=== PATIENT | male | born 1955 | race Caucasian/White ===

== ENCOUNTER 2017-04-22 13:08 | Inpatient (IN) ==
[2017-04-22 13:46] LABS: MANUAL DIFF NEEDED? NO
--- NOTE | 2017-04-22 13:47 | EKG Report ---
Test Performed on : 04/22/2017 1:40:04 PM Test Reason : Falls Blood Pressure : / mmHG Vent. Rate : 115 BPM Atrial Rate : 115 BPM P-R Int : 166 ms QRS Dur : 090 ms QT Int : 338 ms P-R-T Axes : 028 -18 015 degrees QTc Int : 467 ms Sinus tachycardia. Otherwise normal ECG When compared with ECG of 26-MAY-2008 19:35, No significant change was found Unconfirmed Result
[2017-04-22 13:50] LABS: BASO% 0.4 % (0.0-0.8); EOS# 0.11 X1000 (0.0-0.7); EOS% 1.6 % (0.0-10.0); HEMATOCRIT 34.6 % (42.0-52.0); HEMOGLOBIN 11.4 g/dL (14.0-18.0); IMM GRAN# 0.03 X1000 (0.0-0.04); IMM GRAN% 0.4 % (0.0-0.5); LYMPH# 1.65 X1000 (1.2-3.4); LYMPH% 24.1 % (20.5-51.1); MCHC 32.9 g/dL (33-37); MCV 97.2 FL (81-99); MONO# 0.61 X1000 (0.11-0.59); MONO% 8.9 % (1.7-9.3); MPV 10.9 FL (7.4-10.4); NEUT% 64.6 % (42.2-75.2); PLT 140 X1000 (130-400); RBC 3.56 XMIL (4.7-6.1)
--- NOTE | 2017-04-22 14:18 | PROVIDER DOCUMENTATION ---
This chart was entered by Lety Toro Scribe, acting as scribe for Favio Martinez CRNP. HPI-Neurological Disorder - General Chief Complaint: Fall Stated Complaint: FALL Time Seen by Provider: 04/22/17 13:13 Source: patient, family () Allergies/Adverse Reactions: Patient Allergies Allergy/AdvReac Type Severity Reaction Status Date / Time Penicillins Allergy Unknown Verified 04/22/17 13:18 Home Medications: Home Medication List Medication Instructions Recorded Confirmed Last Taken Type Colesevelam HCl [Welchol] 1 tab PO DAILY 04/22/17 04/22/17 04/22/17 History Cyclobenzaprine [Flexeril] 1 tab PO QHS 04/22/17 04/22/17 04/21/17 History Lisinopril 1 tab PO BID 04/22/17 04/22/17 04/22/17 History Trazodone HCl 1 tab PO QHS 04/22/17 04/22/17 04/21/17 History - History of Present Illness-Neuro Nature of Presenting Problem: Pt is 61 y/o M presents to the ED with frequent falls. Pt's states Pt took a Flexeril on Thursday and shortly after started leaning to the L and falling. Pt states R should pain. Pt's states Pt started having shaking in L arm on Thursday. Headache Location: denies: frontal, temporal, occipital, parietal, global Severity: reports: mild Onset/Duration: reports: 2 days ago Timing: reports: still present Context: reports: head injury, falling, other (hallucinations). denies: found unresponsive by [facility] staff, found unresponsive by bystander, found unresponsive by family, low blood sugar, recent/heavy alcohol intake, drug abuse , overdose, recent infection, fever, impaired speech, paresthesia, facial droop , seizure activity Character of Altered Mental Status: reports: N/A Any recent trauma/injury?: reports: minor Character of Deficits: reports: falling New weakness or altered sensation location:: reports: none Cognitive Baseline: alert but confused Gait Baseline: walks without assistance Associated Symptoms: reports: trouble walking, weakness, other (hallucinations) . denies: short of breath, headache, decreased ability to walk or stand, fainting, dizziness, confusion, chest pain, neck/back pain, fatigue, fever/ chills, insomnia, loss of consciousness, muscle spasms, nausea, numbness in legs /feet, paresthesia, diaphoretic, ringing in ears, seizures, sleepy, slurred speech, tingling in legs/feet, vomiting, vision changes Similar Symptoms Previously?: Yes Recently seen or treated by another doctor?: No Review of Systems - Adult - REVIEW OF SYSTEMS - ADULT Constitutional: denies: chills, fever Eyes: denies: blurred vision, double vision Ears, Nose, Mouth & Throat: denies: ear pain, nose pain, throat pain Cardiovascular: denies: chest pain, heart murmur, irregular heart rate Respiratory: denies: cough, shortness of breath, wheezing Gastrointestinal: denies: abdominal pain, diarrhea, nausea, vomiting Genitourinary: denies: dysuria, hematuria, urgency Musculoskeletal: reports: muscle weakness, other (R shoulder pain). denies: bone pain, neck pain Integumentary: reports: other (abrasion to bilateral knee and arms laceration to forehead). denies: hives, itching Neurological: reports: tremors (LUE). denies: dizziness/vertigo, headache/ migraines, numbness, slurred speech, syncope Psychiatric: reports: other (hallucinations). denies: anxiety, depression Endocrine: reports: no symptoms reported Hematologic/Lymphatic: reports: no symptoms reported Allergic/Immunologic: reports: no symptoms reported All Other Systems: Reviewed and Negative Past History - Adult - PAST MEDICAL HISTORY-ADULT Review of Records: reports: Nursing Assessment Review, Medications Reviewed, Social history reviewed & non-contributory. Major Childhood Illnesses: reports: denies history Cardiovascular: reports: HTN, hyperlipidemia Respiratory: reports: denies history Gastrointestinal: reports: denies history Obstetrical/Gynecological: reports: denies history Genitourinary: reports: denies history Musculoskeletal: reports: denies history Neurological: reports: denies history Endocrine/Immune: reports: denies history Other Conditions: reports: denies history - IMMUNIZATION STATUS Childhood Immunizations: See Nurse Assessment Flu Vaccine: See Nurse Assessment - FAMILY HISTORY Family History: reviewed, not pertinent - SOCIAL HISTORY Smoking: denies Substance Use: denies Living Situation: family Physical Exam- Neurological - Physical Exam-Neuro Initial Vital Signs Reviewed: Yes General Appearance: appears well, alert, no apparent distress Eye Exam: bilateral eye: normal inspection, PERRL, EOMI HENMT: normocephalic/atraumatic, moist mucous membranes, normal ENT inspection Head Injury: no evidence of injury Neck: non-tender, full range of motion, supple, normal inspection Respiratory: chest non-tender, lungs clear, normal breath sounds Cardiovascular: normal peripheral pulses, tachycardia Abdominal Exam: normal bowel sounds, non tender, soft Lymphatic: no adenopathy 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: normal hearing, normal speech, PERRL Motor/Sensory: no motor deficit, no sensory deficit Neurologic: grossly normal Integumentary: normal color, normal turgor, warm/dry, abrasion(s) (bilateral knees and arms), laceration(s) (forehead) Psych/Mental Status: normal mood/affect, other (confused) Progress - PLAN OF CARE/RESULTS Progress/Plan/Lab Results: Vital Signs - 8 hr 04/22/17 13:20 Temperature 97.7 F Pulse Rate 120 H Respiratory Rate 18 Blood Pressure 129/90 O2 Sat by Pulse Oximetry 98 Laboratory Results - last 24 hr 04/22/17 04/22/17 04/22/17 13:30 13:30 13:30 WBC 6.85 RBC 3.56 L Hgb 11.4 L Hct 34.6 L MCV 97.2 MCH 32.0 H MCHC 32.9 L RDW Std Deviation 19.6 H Plt Count 140 MPV 10.9 H Immature Gran % (Auto) 0.4 Neut % (Auto) 64.6 Lymph % (Auto) 24.1 [place] % (Auto) 8.9 Eos % (Auto) 1.6 Baso % (Auto) 0.4 Immature Gran # (Auto) 0.03 Neut # (Auto) 4.42 Lymph # (Auto) 1.65 [place] # (Auto) 0.61 H Eos # (Auto) 0.11 Baso # (Auto) 0.03 Sodium 135 L Potassium 3.4 L Chloride 97 L Carbon Dioxide 18 L Anion Gap 20 BUN 27 H Creatinine 1.0 Estimated GFR/1.73 m2 > 60 BUN/Creatinine Ratio 27 Glucose 115 H Calculated Osmolality 276 Calcium 9.7 Total Bilirubin 1.10 H AST 63 H ALT 30 Alkaline Phosphatase 75 Creatine Kinase 179 Troponin T < 0.010 Total Protein 7.4 Albumin 4.4 Globulin 3.0 Albumin/Globulin Ratio 1.0 Urine Source Urine Color Urine Clarity Urine pH Ur Specific Powell Urine Protein Urine Ketones Urine Blood Urine Nitrite Urine Bilirubin Urine Urobilinogen Urine Microscopic RBC Urine WBC Urine Microscopic WBC Ur Epithelial Cells Urine Crystals Urine Bacteria Urine Casts Urine Yeast Urine Glucose Urine Opiates Screen Ur Oxycodone Screen Urine Methadone Screen Ur Barbituates Screen Ur Tricyclics Screen Ur Phencyclidine Scrn Ur Amphetamines Screen U Methamphetamines Scrn Urine MDMA Screen U Benzodiazepines Scrn Urine Cocaine Screen U Cannabinoids Screen Plasma/Serum Ethyl Alc 04/22/17 04/22/17 04/22/17 13:30 14:30 14:30 WBC RBC Hgb Hct MCV MCH MCHC RDW Std Deviation Plt Count MPV Immature Gran % (Auto) Neut % (Auto) Lymph % (Auto) [place] % (Auto) Eos % (Auto) Baso % (Auto) Immature Gran # (Auto) Neut # (Auto) Lymph # (Auto) [place] # (Auto) Eos # (Auto) Baso # (Auto) Sodium Potassium Chloride Carbon Dioxide Anion Gap BUN Creatinine Estimated GFR/1.73 m2 BUN/Creatinine Ratio Glucose Calculated Osmolality Calcium Total Bilirubin AST ALT Alkaline Phosphatase Creatine Kinase Troponin T Total Protein Albumin Globulin Albumin/Globulin Ratio Urine Source CLEAN CATCH Urine Color YELLOW Urine Clarity CLEAR Urine pH 5.0 Ur Specific Powell 1.020 Urine Protein TRACE A Urine Ketones 1+(Small) A Urine Blood NEGATIVE Urine Nitrite NEGATIVE Urine Bilirubin NEGATIVE Urine Urobilinogen NORMAL Urine Microscopic RBC <10 Urine WBC TRACE A Urine Microscopic WBC <10 Ur Epithelial Cells <10 Urine Crystals NONE SEEN Urine Bacteria 1+ Urine Casts NONE SEEN Urine Yeast NONE SEEN Urine Glucose NEGATIVE Urine Opiates Screen NONE DETECTED Ur Oxycodone Screen NONE DETECTED Urine Methadone Screen NONE DETECTED Ur Barbituates Screen NONE DETECTED Ur Tricyclics Screen NONE DETECTED Ur Phencyclidine Scrn NONE DETECTED Ur Amphetamines Screen NONE DETECTED U Methamphetamines Scrn NONE DETECTED Urine MDMA Screen NONE DETECTED U Benzodiazepines Scrn NONE DETECTED Urine Cocaine Screen NONE DETECTED U Cannabinoids Screen NONE DETECTED Plasma/Serum Ethyl Alc Orders Category Date Time Status Saline Loc NOW Care 04/22/17 13:34 Active HEAD/C-SPINE W/O CONTRAST [CT] Stat Exams 04/22/17 13:35 Completed SHOULDER-RIGHT [RAD] Stat Exams 04/22/17 13:35 Completed ALCOHOL BLOOD Stat Lab 04/22/17 13:30 Completed CBC WITH ELECTRONIC DIFF [HEME] Stat Lab 04/22/17 13:30 Completed CK PROFILE [SP CHEM] Stat Lab 04/22/17 13:30 Completed COMPREHENSIVE METABOLIC PANEL [CHEM] Stat Lab 04/22/17 13:30 Completed TROPONIN T Stat Lab 04/22/17 13:30 Completed UDS [URINE DRUG SCREEN PL] Stat Lab 04/22/17 14:[address] [URINALYSIS] Stat Lab 04/22/17 14:30 Completed URINE MICROSCOPIC [URINALYSIS] Stat Lab 04/22/17 14:30 Completed EKG [EKG] Stat Ther 04/22/17 13:34 Draft Discussed results and plan of care with patient. Patient agrees with plan and verbalizes understanding. Result Diagrams: 04/22/17 13:30 04/22/17 13:30 - XRAY 1 XRAY: Right XRAY Study: Shoulder Impression: Abnormal (no acute bony abnormality ([place])) XRAY Interpretation: postsurgical changes and mild osteoarthritis. - CT/MRI 1 CT Study: Head Impression: Abnormal (small scalp contusion at the superior right scalp but no intracranial injury. advanced cervical spondylosis but no acute injury to the cervical spine ([place])) - CONSULTS/PCP/HOSPITALIST Notification #1 *Consult/PCP/Hospitalist*: Dr. Reilly Time Discussed: 16:08 Reason/Comments: Admission Consult Disposition: Admit Departure - Departure Date of Disposition Decision: 04/22/17 Time of Disposition Decision: 16:09 DIAGNOSIS: Hyperbilirubinemia Altered mental status, unspecified Qualifiers: Altered mental status type: unspecified Qualified Code(s): R41.82 - Altered mental status, unspecified Disposition: HOME 01 Certified Medical Emergency: Emergent Condition: Stable Referrals and Follow-Ups: None,PCP [Clinical Support] - - Critical Care Note This patient required my direct & personal management of CC.: No Attestation - Physician/ GERHARD Attestation Patient care was provided by Advanced Practice Provider:: Yes Advanced Practice Provider:: Favio Martinez Advanced Practice Provider documentation review:: The Mid-level provider documentation, treatment plan and medical decision making was reviewed by the physician who agrees with all treatment and medical decision making by the MLP. This chart was documented by the thuy scribe, (Lety Toro Scribe) and accurately reflects the services I performed and decisions made by , Favio Martinez CRNP, as attested by the provider's signature.
[2017-04-22 14:19] LABS: AGAP 20; ALBUMIN 4.4 g/dL (3.5-5.0); ALKALINE PHOSPHATASE 75 U/L (32-122); BUN 27 mg/dL (8-22); CALCIUM 9.7 mg/dL (8.8-10.2); CHLORIDE 97 mmol/L (98-107); CK PROFILE 179 U/L (24-204); COSMO 276; GOT 63 U/L (10-34); GPT 30 U/L (10-44); POTASSIUM 3.4 mmol/L (3.5-5.1); SODIUM 135 mmol/L (136-145); TCO2 18 mmol/L (25-35); TOTAL PROTEIN 7.4 g/dL (6.3-8.3)
--- NOTE | 2017-04-22 14:25 | Diag Imaging Result Doc PS360 ---
HEAD/C-SPINE W/O CONTRAST - 04/22/2017 INDICATION: Falls TECHNIQUE: A CT dose reduction protocol was used. COMPARISON: None FINDINGS: Head CT: There is mild diffuse atrophy. No intracranial mass or hemorrhage. No skull fracture. The sinuses are grossly clear. There is some trace soft tissue swelling at the superior lateral right scalp. Cervical spine: Alignment is anatomic. No evidence of fracture. There is advanced disc degeneration at C4-5, C5-6 and C6-7. No severe central canal stenosis. There is moderate central canal stenosis at C5-6 and C6-7. IMPRESSION: 1. Small scalp contusion at the superior right scalp but no intracranial injury. 2. Advanced cervical spondylosis but no acute injury to the cervical spine. Electronically signed by Derick Conrad 04/22/2017 2:23 PM
--- NOTE | 2017-04-22 14:34 | Diag Imaging Result Doc PS360 ---
EXAM: SHOULDER-RIGHT HISTORY: Fall TECHNIQUE: Three views COMPARISON: None. FINDINGS: There are postsurgical changes distal clavicle and surgical anchors within the humeral head. There are ossific densities adjacent to the greater tuberosity. There is mild osteophyte formation. No acute fracture or dislocation is appreciated. IMPRESSION: Postsurgical changes and mild osteoarthritis. No acute bony abnormality. Electronically signed by Janice Salvador 04/22/2017 2:31 PM
[2017-04-22 14:41] LABS: URINE SOURCE CLEAN CATCH
[2017-04-22 14:50] LABS: BILIRUBIN URINE NEGATIVE (NEGATIVE); BLOOD URINE NEGATIVE (NEGATIVE); COLOR YELLOW; GLUCOSE URINE NEGATIVE (NEGATIVE); LEUKOCYTES URINE TRACE (NEGATIVE); NITRITE URINE NEGATIVE (NEGATIVE); PROTEIN URINE TRACE mg/dL (NEGATIVE); UROBILINOGEN URINE NORMAL
[2017-04-22 14:53] LABS: CLARITY CLEAR (CLEAR); URINE CAST NONE SEEN /LPF; URINE CRYSTAL NONE SEEN /HPF; URINE EPITHELIAL CELLS <10 /HPF (<10); URINE MICROSCOPIC NEEDED? YES; URINE RBC <10 /HPF (<10); URINE WBC <10 /HPF (<10)
[2017-04-22 15:24] LABS: UR AMPHETAMINES QUAL NONE DETECTED (NONE DETECT); UR BARBITUATES QUAL NONE DETECTED (NONE DETECT); UR BENZODIAZEPIN QUAL NONE DETECTED (NONE DETECT); UR CANNABINOIDS QUAL NONE DETECTED (NONE DETECT); UR COCAINE QUAL NONE DETECTED (NONE DETECT); UR MDMA QUAL NONE DETECTED (NONE DETECT); UR METHADONE QUAL NONE DETECTED (NONE DETECT); UR METHAMPHETAMINE QUAL NONE DETECTED (NONE DETECT); UR OPIATES QUAL NONE DETECTED (NONE DETECT); UR OXYCODONE QUAL NONE DETECTED (NONE DETECT); UR PCP QUAL NONE DETECTED (NONE DETECT); UR TCA QUAL NONE DETECTED (NONE DETECT)
--- NOTE | 2017-04-22 15:29 | ED EKG INTERP ---
This chart was entered by Lety Toro Scribe, acting as scribe for Terrance Marshall MD. EKG Interpretation - EKG Time of EKG reading by physician:: 13:40 EKG Read and Signed by:: Terrance Marshall EKG Interpretation (*Must complete 3 of following elements*): Abnormal Rate: 115 Rhythm: sinus tachycardia Comments: otherwise normal ECG This chart was documented by the indicated scribe, (Lety Toro Scribe) and accurately reflects the services I performed and decisions made by me, Terrance Marshall MD, as attested by the provider's signature.
[2017-04-22] MEDS ORDERED: NS 1,000 ML IV ONE (18:28)
[2017-04-22] MEDS ORDERED: ZOFRAN IV PRN (18:28)
--- NOTE | 2017-04-22 18:29 | HISTORY AND PHYSICAL ---
PRIMARY CARE PHYSICIAN: Dr. Jonelle Cantu CHIEF COMPLAINT: Fall. HISTORY OF PRESENTING ILLNESS: This is a 61-year-old male, who presents to [facility] ER with his who states that he had a recent shoulder surgery of a rotator cuff about 8 weeks ago. He took a Flexeril on Thursday and after that began leaning to the right and has had 6 falls in the past 2 days. On the right side of his head he is noted to have a small laceration that has a Steri-Strip on it and some road rash to his denominational area. He also has a skin tear to his left foot. The patient's right hand is noted to be shaking. When I questioned him about drinking alcohol, he states he has not drank in the past 2 days but prior to that, he drinks several heavy drinks nightly according to the . His workup showed his head CT with a small scalp contusion at the superior right scalp, but no intracranial injury. No acute injury to the cervical spine. We did a shoulder x-ray of the right shoulder that showed postsurgical changes and a mild osteoarthritis. No acute bony abnormality. The patient is noted to be hallucinating and states that there were 6 little boys in his backyard yesterday that "looked like a pack a dogs" and then he went outside to check on the little boys and that is when he tripped and fell. He seems to be having rapid eye movement looking around the room. Again, his pupils are dilated. His right hand is shaking. His laboratory data was unremarkable. His urine drug screen was negative. His serum alcohol level showed none detected. So, he will be admitted for further evaluation and treatment. PAST MEDICAL HISTORY: Hypertension and hyperlipidemia. PAST SURGICAL HISTORY: Rotator cuff surgery. FAMILY HISTORY: Noncontributory. SOCIAL HISTORY: He currently lives with family. Denies any smoking. He is a heavy drinker nightly, 2-3 mixed drinks a night, but has not drank in the past 2 days. He denies any illicit drug use. ALLERGIES: Penicillin. HOME MEDICATIONS: Welchol 625 mg p.o. daily. Flexeril 10 mg p.o. at bedtime will be held. Lisinopril 10 mg p.o. b.i.d. Trazodone 150 mg p.o. at bedtime. LABORATORY DATA: Showed a white blood cell count of 6.5, a hemoglobin of 11.4, hematocrit 34.6, platelets 140,000. Sodium 135, potassium 3.4, chloride 97, CO2 18, BUN of 27, creatinine of 1, glucose 115, total bilirubin of 1.10. AST of 63, ALT 30. Alkaline phosphatase is 75. Creatine kinase of 179. Troponin less than 0.010. Urinalysis was negative. Urine drug screen was negative. Serum plasma alcohol level showed none detected. DIAGNOSTICS: Head CT showed a small scalp contusion at the superior right scalp , but no intracranial injury. Cervical spine CT showed advanced cervical spondylosis, but no acute injury to the cervical spine. Right shoulder x-ray showed postsurgical changes and mild osteoarthritis, but no acute bony abnormality. EKG showed sinus tachycardia at 115. REVIEW OF SYSTEMS: He denies any fever, chills. He has had some blurred vision , dizziness, denied any chest pain, coughing, shortness of breath. Denied any abdominal pain , constipation, diarrhea, burning or hurting with urination. He is positive for hallucinations. He is positive for shaking in his right arm. PHYSICAL EXAMINATION: On arrival, he had a temperature of 97.7 degrees, a pulse of 120, respirations 18, blood pressure 129/90, saturating 98% on room air. GENERAL: This is a 61-year-old male, who is lying in the bed. Answers most questions appropriately. Family at bedside to fill in the gaps with questions and review medical record also. HEENT: Patient is noted to have a laceration to his right side of his forehead , has a Steri-Strip in place. He also in the temporal area has got a little road rash. He has a skin tear to his left wrist. Pupils are mildly dilated. Rapid eye movement. The extraocular movements are intact. Oropharynx and nares are clear. NECK: Supple. LUNGS: Clear to auscultation bilaterally with equal lung expansion and chest wall movement. HEART: With regular rate and rhythm. No murmurs, rubs, or gallops. ABDOMEN: Soft, nontender, nondistended. Bowel sounds are present x4 quadrants. EXTREMITIES: No clubbing, cyanosis, or edema. NEUROLOGICAL: The cranial nerves 2-12 appear grossly intact. ASSESSMENT: 1. Fall. 2. Altered mental status. 3. Ethanol withdrawal. 4. Ethanol abuse. 5. Hallucinations secondary to alcohol withdrawal. PLAN: He is being admitted to the medical unit. Placed on telemetry. We will continue his home medications. Place on a healthy heart diet. Neuro checks q.4 hours for 24 hours. Vital signs q.4 hours. Recheck a CBC and CMP in the a.m. Place on Ativan 1 mg IV q.4 hours p.r.n., normal saline at 100 mL an hour, Librium 50 mg p.o. q.6 hours, Zofran 4 mg IV q.4 hours p.r.n. and Tylenol 650 p.o. q.6 hours p.r.n. If his symptoms improve in a.m. and he becomes clearer, I think this is most likely related to some alcohol withdrawal. If not, we will consider an MRI of the brain in the a.m. Dictated by LYNDSEY Hatfield for Sam Reilly MD cc: LYNDSEY Hatfield MD Marlin D. Gill, MD pt examined, most likely alcohol withdrawal syndrome, will follow closely, mri in am if not improved, also will pursue ammonia level APENOT MTDD
[2017-04-22] MEDS ORDERED: HALDOL IV ONE (18:30)
[2017-04-22] MEDS ORDERED: ATIVAN IV ONE (18:30)
[2017-04-22] MEDS ORDERED: ATIVAN ONE (18:33)
[2017-04-22] MEDS ORDERED: HALDOL ONE (18:33)
--- NOTE | 2017-04-22 18:49 | EKG Report ---
Test Performed on : 04/22/2017 6:35:34 PM Test Reason : rapid HR Blood Pressure : / mmHG Vent. Rate : 155 BPM Atrial Rate : 155 BPM P-R Int : 092 ms QRS Dur : 086 ms QT Int : 296 ms P-R-T Axes : 050 032 034 degrees QTc Int : 475 ms Sinus tachycardia. with short AL Junctional ST depression, probably normal Borderline ECG When compared with ECG of 22-APR-2017 13:40, (Unconfirmed) AL interval has decreased Confirmed by Reji Hyman MD ([id number]) on 05/04/2017 6:30:28 PM
[2017-04-22] MEDS: DESYREL PO SCH ×2 (21:44→22:22)
[2017-04-22] MEDS: PRINIVIL PO SCH ×2 (21:44→22:22)
[2017-04-22] MEDS: LIBRIUM PO SCH ×2 (21:44→22:22)
[2017-04-22] MEDS: ATIVAN IV PRN (22:35)
[2017-04-22] MEDS ORDERED: LABETALOL IV PRN (22:36)
[2017-04-22] MEDS ORDERED: LABETALOL IV ONE (22:36)
[2017-04-22] MEDS ORDERED: LABETALOL ONE (22:46)
[2017-04-22] MEDS: ATIVAN 20 MG in NS 190 ML IV SCH (22:57)
[2017-04-23] LABS: BILIRUBIN URINE NEGATIVE (NEGATIVE); BLOOD URINE 3+ (NEGATIVE); CLARITY CLEAR (CLEAR); COLOR YELLOW; GLUCOSE URINE NEGATIVE (NEGATIVE); LEUKOCYTES URINE NEGATIVE (NEGATIVE); NITRITE URINE NEGATIVE (NEGATIVE); PROTEIN URINE TRACE mg/dL (NEGATIVE); SP GRAVITY URINE 1.025; URINE CULTURE PL NEEDED? YES; URINE EPITHELIAL CELLS <10 /HPF (<10); URINE SOURCE CATH; URINE WBC <10 /HPF (<10); UROBILINOGEN URINE NORMAL
[2017-04-23 05:43] LABS: MANUAL DIFF NEEDED? NO
[2017-04-23 05:46] LABS: BASO% 0.3 % (0.0-0.8); EOS# 0.03 X1000 (0.0-0.7); EOS% 0.4 % (0.0-10.0); HEMATOCRIT 31.5 % (42.0-52.0); HEMOGLOBIN 10.4 g/dL (14.0-18.0); IMM GRAN# 0.03 X1000 (0.0-0.04); IMM GRAN% 0.4 % (0.0-0.5); LYMPH# 1.28 X1000 (1.2-3.4); LYMPH% 18.7 % (20.5-51.1); MCH 32.7 PG (27-31); MCV 99.1 FL (81-99); MONO# 0.77 X1000 (0.11-0.59); MONO% 11.2 % (1.7-9.3); MPV 10.2 FL (7.4-10.4); PLT 131 X1000 (130-400); RBC 3.18 XMIL (4.7-6.1)
[2017-04-23 06:19] LABS: AGAP 16; ALBUMIN 3.9 g/dL (3.5-5.0); ALKALINE PHOSPHATASE 62 U/L (32-122); BUN 23 mg/dL (8-22); CHLORIDE 105 mmol/L (98-107); COSMO 289; GOT 55 U/L (10-34); GPT 29 U/L (10-44); POTASSIUM 3.6 mmol/L (3.5-5.1); SODIUM 143 mmol/L (136-145); TCO2 22 mmol/L (25-35); TOTAL PROTEIN 6.7 g/dL (6.3-8.3)
[2017-04-23] MEDS: LIBRIUM PO SCH ×4 (06:19→18:33)
[2017-04-23 06:51] LABS: SED RATE 12 mm/hr (0-15)
[2017-04-23] MEDS: ATIVAN 20 MG in NS 190 ML IV SCH (07:47)
[2017-04-23] MEDS ORDERED: LONITEN PO SCH (09:00)
[2017-04-23] MEDS ORDERED: M.V.I.-12 10 ML, FOLIC ACID 1 MG, MAGNESIUM SULFATE 1 GM, THIAMINE 100 MG in NS 1,000 ML IV ONE (09:33)
[2017-04-23] MEDS: PRINIVIL PO SCH ×2 (09:38→22:20)
[2017-04-23] MEDS: WELCHOL PO SCH (09:38)
[2017-04-23] MEDS: NS 1,000 ML IV SCH (17:19)
[2017-04-23] MEDS: DESYREL PO SCH (22:19)
--- NOTE | 2017-04-23 23:33 | PROGRESS NOTE ---
DATE: 04/23/2017 SUBJECTIVE: Patient currently is sedated. He does not answer questions or follow commands. He apparently had a very eventful night and became quite agitated, irritated and was felt to be going into acute alcohol withdrawal and he currently is on an Ativan drip. OBJECTIVE: Vital Signs: Temperature 97, pulse 92, respiratory 20, BP 142/89, sat 98% on a Venturi make with an O2 flow rate of 2 L. General: Patient is sedated currently from the Ativan drip. HEENT: Normocephalic. Neck: Supple. Cardiovascular: Regular rate. Chest: Clear. Abdomen: Soft. Extremities: Moves all extremities. Neurologic: No changes. ASSESSMENT: 1. Acute metabolic encephalopathy secondary to alcohol abuse and withdrawal. 2. Alcohol withdrawal and delirium tremens. 3. Fall secondary to alcohol withdrawal. 4. Anemia of chronic disease with elevated MCV, MCH. 5. Recent rotator cuff surgery a few weeks ago. PLAN: We will continue Ativan drip. We will continue him sedated in the ICU. Continue to attempt to wean down the Ativan as tolerated and continue to follow. He apparently stopped drinking on Thursday, came into the hospital on Thursday, yesterday, and went into full blown DTs a few hours later. TIME: 45 minutes spent in total care. cc: Timmy Marie MD
[2017-04-24] MEDS: ATIVAN 20 MG in NS 190 ML IV SCH (00:15)
[2017-04-24] MEDS: LIBRIUM PO SCH ×4 (05:32→21:00)
[2017-04-24] MEDS: NS 1,000 ML IV SCH ×2 (06:00→17:50)
[2017-04-24] MEDS: PRINIVIL PO SCH ×3 (07:50→20:21)
[2017-04-24] MEDS: TYLENOL PO PRN ×3 (07:52→20:21)
[2017-04-24] MEDS: WELCHOL PO SCH ×2 (07:53→08:10)
[2017-04-24] MEDS: LABETALOL IV PRN (08:25)
--- NOTE | 2017-04-24 11:01 | PROGRESS NOTE ---
DATE: 04/24/2017 SUBJECTIVE: Patient currently is off his Ativan drip. He is a little bit more awake and alert. His speech is still slow and sluggish but is oriented. PHYSICAL: Temperature 97 degrees, pulse 102, respiratory 20, BP 220/110, currently 171/80 after 1 dose of IV labetalol. HEENT: Normocephalic. Neck: Is supple. CV: Regular rate. Chest: Clear. No wheezing. No crackles. Abdomen: Soft. Extremities: Moves all extremities. LABS: No current labs this morning. ASSESSMENT: 1. Hypertensive urgency. Improved after IV labetalol .will continue his p.o. medication. 2. Chronic alcohol withdrawal. He currently is off his Ativan drip and is more oriented. Will continue Librium scheduled with p.r.n. Further orders as needed. 38 minutes was spent in total care. cc: Timmy Marie MD
[2017-04-24] MEDS: DESYREL PO SCH (20:21)
[2017-04-25] MEDS: LABETALOL IV PRN ×3 (02:48→18:36)
[2017-04-25] MEDS: TYLENOL PO PRN ×2 (06:30→12:37)
[2017-04-25] MEDS: LIBRIUM PO SCH ×3 (06:30→22:56)
[2017-04-25] MEDS: NS 1,000 ML IV SCH ×3 (07:46→20:23)
[2017-04-25] MEDS: WELCHOL PO SCH ×2 (07:50→08:37)
[2017-04-25] MEDS: PRINIVIL PO SCH ×3 (07:50→20:12)
[2017-04-25] MEDS: COREG PO SCH ×2 (08:57→20:12)
[2017-04-25] MEDS ORDERED: PRINIVIL PO ONE (09:00)
[2017-04-25] MEDS: ATIVAN IV PRN ×2 (11:05→20:11)
--- NOTE | 2017-04-25 11:35 | PROGRESS NOTE ---
DATE: 04/25/2017 SUBJECTIVE: The patient notes that he is not hurting anywhere other than his shoulder. Denies any chest pains or palpitations. Denies any fevers or chills. OBJECTIVE: Vital Signs: Temperature 98.0 degrees, pulse 95, respiratory rate 16, blood pressure 184/115. General: Patient is awake, alert, and currently in no real respiratory distress. He is easily confused and does still have bouts of delirium, but seems to get reoriented easily. HEENT: Normocephalic, atraumatic, SIRIA. Neck: Supple. Cardiovascular: Regular rate. Chest: Relatively clear. Abdomen: Soft. Extremities: Moves all extremities. LABORATORIES: Reviewed. ASSESSMENT: 1. Hypertension. Patient's blood pressure remains elevated. We will increase his home lisinopril to 20 twice a day. We will also add Coreg 25 twice a day and hydralazine 3 times a day, and we will continue to follow his blood pressures. 2. Acute delirium tremens, resolved. Patient is still in alcohol withdrawal. We are slowly weaning his Librium and as this weans down, it certainly hopefully should help his acute delirium symptoms. We will keep him in the ICU today secondary to his elevated blood pressures. TIME SPENT: Thirty-eight minutes was spent in total care. cc: Timmy Marie MD
[2017-04-25] MEDS: APRESOLINE PO SCH ×2 (12:35→20:12)
[2017-04-25] MEDS: NORCO-7.5 PO PRN ×2 (17:08→22:53)
[2017-04-25] MEDS: DESYREL PO SCH (20:12)
[2017-04-25] MEDS ORDERED: COREG PO ONE (21:48)
[2017-04-26] MEDS: APRESOLINE PO SCH ×3 (06:00→20:01)
[2017-04-26] MEDS: LIBRIUM PO SCH ×3 (06:00→22:36)
[2017-04-26] MEDS: COREG PO SCH ×2 (08:21→20:00)
[2017-04-26] MEDS: TYLENOL PO PRN ×2 (08:22→19:56)
[2017-04-26] MEDS: PRINIVIL PO SCH ×2 (08:22→20:00)
[2017-04-26] MEDS: NS 1,000 ML IV SCH ×4 (08:22→23:00)
[2017-04-26] MEDS: WELCHOL PO SCH (08:22)
--- NOTE | 2017-04-26 11:27 | PROGRESS NOTE ---
DATE: 04/26/2017 SUBJECTIVE: Patient is awake but confused. PHYSICAL EXAMINATION: Vital Signs: Temperature 100.1, pulse 94, respiratory rate 18, BP 182/103 to 144/80. General: Patient is awake, although delirious. He is frequently seeing things in his room. ASSESSMENT: 1. Altered mental status secondary to delirium tremens, improving. 2. Delirium tremens secondary to chronic alcohol abuse and withdrawal. 3. Alcohol abuse and withdrawal, stable. 4. Hypertension. We have continued to slowly increase his blood pressure medications. He is currently on hydralazine 25 every 8, lisinopril 20 twice a day, and Coreg 25 twice a day. We will increase his hydralazine to 50 three times a day and we will follow. We will decrease his Librium to 25 every 12. PLAN: As noted, we will decrease his medications as noted. We will continue to follow. We will increase his blood pressure medications. We will continue to attempt to discuss with the family chronic alcoholism and alcohol withdrawal. We will discuss with them that his acute delirium is secondary to his alcohol withdrawal and not to a stroke as strokes do not come and go. We will continue to follow. Further orders as needed. cc: Timmy Marie MD
[2017-04-26 19:39] LABS: HEMATOCRIT 31.8 % (42.0-52.0); HEMOGLOBIN 10.6 g/dL (14.0-18.0); MCH 32.9 PG (27-31); MCHC 33.3 g/dL (33-37); MCV 98.8 FL (81-99); MPV 9.9 FL (7.4-10.4); RBC 3.22 XMIL (4.7-6.1)
[2017-04-26] MEDS: DESYREL PO SCH (20:01)
[2017-04-26 20:03] LABS: AGAP 13; BUN 6 mg/dL (8-22); CALCIUM 8.8 mg/dL (8.8-10.2); CHLORIDE 100 mmol/L (98-107); COSMO 271; SODIUM 136 mmol/L (136-145); TCO2 22 mmol/L (25-35)
[2017-04-27] MEDS: APRESOLINE PO SCH ×3 (06:00→21:54)
[2017-04-27] MEDS: LIBRIUM PO SCH ×4 (06:00→23:00)
[2017-04-27] MEDS: WELCHOL PO SCH (07:55)
--- NOTE | 2017-04-27 08:55 | PROGRESS NOTE ---
DATE: 04/27/2017 SUBJECTIVE: Patient is much more awake and alert this morning. He is answering questions more appropriately. When asked where he is, he states in the [place]. Asked to be more specific, he states in the hospital in [facility]. PHYSICAL: Vital Signs: Temperature 98, pulse 87, respiratory 16, BP 163/82, saturation 97% on room air. General: Patient is awake, alert, currently in no respiratory distress. HEENT: Normocephalic, atraumatic. Neck: Supple. Cardiovascular: Regular rate. Chest: Clear. Abdomen: Soft. Extremities: Moves all extremities. Neurologic: No focal changes. Skin: Warm and dry. No rashes. ASSESSMENT: 1. Altered mental status secondary to acute alcohol withdrawal. 2. Alcohol withdrawal. 3. Chronic alcoholism. 4. Hypertension. Blood pressures are much better on Lisinopril 20 twice a day and Coreg 25 twice a day, as well as hydralazine 25 times a day. PLAN: We will move patient to the floor. Will continue his current medications. We will again decrease his Librium to 25 at bedtime. We will move him to the floor. We will get physical therapy involved at this point. The family was requesting an MRI when he was still confused and disoriented from his DTs. I do not feel that is appropriate at the moment as he is awake, alert, oriented. We will add Lexapro for his depression as the family notes that is part of the reason for his alcoholism. cc: Timmy Marie MD
[2017-04-27] MEDS: LEVAQUIN PO SCH (09:05)
[2017-04-27] MEDS: PRINIVIL PO SCH ×2 (09:06→21:54)
[2017-04-27] MEDS: TYLENOL PO PRN (09:06)
[2017-04-27] MEDS: LEXAPRO PO SCH (09:06)
[2017-04-27] MEDS: COREG PO SCH (21:54)
[2017-04-27] MEDS: LACTULOSE PO SCH (21:54)
[2017-04-27] MEDS: DESYREL PO SCH (21:54)
[2017-04-28] MEDS: APRESOLINE PO SCH ×3 (06:06→20:49)
[2017-04-28] MEDS: LIBRIUM PO SCH ×2 (06:06→20:49)
[2017-04-28 07:02] LABS: HEMATOCRIT 34.2 % (42.0-52.0); HEMOGLOBIN 11.2 g/dL (14.0-18.0); MCH 32.4 PG (27-31); MCHC 32.7 g/dL (33-37); MCV 98.8 FL (81-99); MPV 9.7 FL (7.4-10.4); RBC 3.46 XMIL (4.7-6.1)
[2017-04-28 07:52] LABS: AGAP 12; ALBUMIN 3.2 g/dL (3.5-5.0); ALKALINE PHOSPHATASE 63 U/L (32-122); BUN 13 mg/dL (8-22); CALCIUM 9.4 mg/dL (8.8-10.2); CHLORIDE 101 mmol/L (98-107); COSMO 278; GOT 38 U/L (10-34); GPT 30 U/L (10-44); MAGNESIUM 1.7 mg/dL (1.5-2.7); POTASSIUM 3.1 mmol/L (3.5-5.1); SODIUM 139 mmol/L (136-145); TCO2 27 mmol/L (25-35); TOTAL PROTEIN 6.4 g/dL (6.3-8.3)
[2017-04-28] MEDS: LEXAPRO PO SCH (08:50)
[2017-04-28] MEDS: WELCHOL PO SCH (08:50)
[2017-04-28] MEDS: LACTULOSE PO SCH ×4 (08:50→21:00)
[2017-04-28] MEDS: LEVAQUIN PO SCH (08:50)
[2017-04-28] MEDS: PRINIVIL PO SCH ×2 (08:50→20:48)
[2017-04-28] MEDS ORDERED: MIRALAX PO SCH (09:00)
--- NOTE | 2017-04-28 09:04 | PROGRESS NOTE ---
DATE: 04/28/2017 SUBJECTIVE: The patient notes that he is feeling much better. He has not really been out of bed. States he was in physical therapy for his shoulder prior to coming in the hospital. Knows he is in the hospital. PHYSICAL: Vital Signs: Temperature 98, pulse 82, respiratory rate 18, BP 160/88, saturation 98% on room air. General: Patient is awake, alert, oriented. Currently in no respiratory distress. Neck: Supple. CV: Regular rate. Chest: Clear. Abdomen: Soft. Extremities: Moves all extremities, but generally weak. ASSESSMENT: 1. Alcohol withdrawal improved. 2. Delirium tremens, resolved. 3. Hypertension. Blood pressures are much better 160/88 to 134/80. 4. Adult failure to thrive with generalized weakness. 5. Hallucinations secondary to alcohol withdrawal, resolved. PLAN: Will continue patient on blood pressure medications. Get physical therapy. Discontinue the Christie. Hopefully home in the next 1-2 days. cc: Timmy Marie MD
[2017-04-28] MEDS: DESYREL PO SCH (20:49)
[2017-04-28] MEDS: COREG PO SCH (20:49)
[2017-04-29] MEDS: APRESOLINE PO SCH ×3 (06:14→21:14)
[2017-04-29] MEDS ORDERED: KLOR-CON PO ONE (08:21)
[2017-04-29] MEDS: LEVAQUIN PO SCH (08:42)
[2017-04-29] MEDS: PRINIVIL PO SCH ×2 (08:42→21:15)
[2017-04-29] MEDS: WELCHOL PO SCH (08:42)
[2017-04-29] MEDS: LEXAPRO PO SCH (08:43)
[2017-04-29] MEDS: LIBRIUM PO SCH ×2 (08:43→21:15)
[2017-04-29] MEDS: LACTULOSE PO SCH ×2 (08:49→23:43)
--- NOTE | 2017-04-29 16:54 | PROGRESS NOTE ---
DATE: 04/29/2017 SUBJECTIVE: The patient states that he is feeling better today. He has no specific complaints. OBJECTIVE: Vital Signs: Blood pressure is 136/79, with heart rate of 83, respirations are 18, temperature is 97.9 degrees oral, with room air saturations of 99%. Cardiovascular: Regular rate and rhythm. S1, S2 appreciated. Pulmonary: Breath sounds are clear with no increased work of breathing noted. Gastrointestinal: Abdomen is soft, nontender, nondistended. Bowel sounds in all 4 quadrants. Neurologic: He is alert and oriented to person, place, and knows he is in the hospital. PROBLEM LIST: 1. Alcohol withdrawal. Improved. 2. Delirium tremens. Resolved. 3. Hypertension. Blood pressures are ranging in the 1-teens to 160s/80s. We will continue with the current regimen. 4. Adult failure to thrive with generalized weakness. 5. Hallucinations secondary to alcohol withdrawal. Resolved. PLAN: We will continue with the current treatment regimen. We are awaiting insurance approval for rehab. Dictated by LYNDSEY Sheth for Timmy Marie MD cc: LYNDSEY Sheth MD
[2017-04-29] MEDS: COREG PO SCH (21:15)
[2017-04-29] MEDS: DESYREL PO SCH (21:16)
[2017-04-29] MEDS: ATIVAN IV PRN (21:19)
[2017-04-30] MEDS: APRESOLINE PO SCH ×3 (06:10→20:38)
--- NOTE | 2017-04-30 08:25 | PROGRESS NOTE ---
DATE: 04/30/2017 SUBJECTIVE: The patient notes he is feeling better. He denies any current complaints. States he is still tired and fatigued. Still having difficulty ambulating due to the tiredness and fatigued. OBJECTIVE: Vital Signs: On physical, temp 97.5, pulse 84, respiratory rate 18, BP 105/52, satting 98% on room air. General: Patient is awake, alert. He is currently in no respiratory distress. He is pleasant to talk with. Neck: Supple. CV: Regular rate. Chest: Clear. Abdomen: Soft. Extremities: Moves all extremities. Neurologic: No focal changes, but is generally weak. LABS: No recent labs. AST down to 38. ASSESSMENT: 1. Mild protein calorie malnutrition. 2. Alcoholic hepatitis, improved. 3. Acute alcohol withdrawal with delirium tremens, resolved. Patient currently is stable from an alcohol standpoint. He has been decreased to Librium 25 twice daily; we will decrease that today to bedtime. Then, we will continue that for a couple of days and then discontinue. 4. Acute metabolic encephalopathy secondary to alcohol withdrawal, resolved. 5. Hypertension. Blood pressures are stable on Coreg 25 at bedtime, hydralazine 25 three times a day and lisinopril 20 twice a day. PLAN: Hopefully patient can be discharged to [facility] or to rehab soon. Medically he is stable, but he is physically unfit to discharge home. cc: Timmy Marie MD
[2017-04-30] MEDS: LEXAPRO PO SCH (09:03)
[2017-04-30] MEDS: WELCHOL PO SCH (09:03)
[2017-04-30] MEDS: LEVAQUIN PO SCH (09:03)
[2017-04-30] MEDS: PRINIVIL PO SCH ×2 (09:04→20:38)
[2017-04-30] MEDS: LACTULOSE PO SCH ×2 (09:08→20:29)
[2017-04-30] MEDS: COREG PO SCH (20:38)
[2017-04-30] MEDS: DESYREL PO SCH (20:38)
[2017-04-30] MEDS ORDERED: LIBRIUM PO SCH (21:00)
[2017-05-01] MEDS: APRESOLINE PO SCH (05:00)
[2017-05-01] MEDS ORDERED: KLOR-CON PO ONE (08:14)
[2017-05-01] MEDS: WELCHOL PO SCH (10:06)
[2017-05-01] MEDS: LEVAQUIN PO SCH (10:06)
[2017-05-01] MEDS: PRINIVIL PO SCH ×2 (10:06→20:30)
[2017-05-01] MEDS: LACTULOSE PO SCH ×2 (10:06→20:28)
[2017-05-01] MEDS: LEXAPRO PO SCH (10:06)
--- NOTE | 2017-05-01 12:29 | PROGRESS NOTE ---
DATE: 05/01/2017 SUBJECTIVE: Patient is still very weak, tired. He is sitting in a chair, having difficulty putting his pants on. In fact, he requires assistance. OBJECTIVE: Vital signs: Temperature 98, pulse 89, respiratory rate 18, BP 93/57 to 106/65. General: Patient is awake, alert. He is in no respiratory distress. Neck: Supple. CV: Regular rate. Chest: Clear. Abdomen: Soft. Extremities: Moves all extremities. Neurologic: No changes. LABS: Reviewed. ASSESSMENT: 1. Adult failure to thrive. 2. Hypokalemia, resolved. 3. Alcohol abuse and withdrawal, stable. 4. Hypertension. Patient's blood pressure actually are low at this point. We will decrease his blood pressure medications. Most likely, his blood pressure elevation was secondary to the withdrawal as he was only on lisinopril on admission. Therefore, we will stop the Coreg and hydralazine at this point. PLAN: Hopefully, the patient can be approved to go to [facility]. Otherwise will need further inpatient rehab. cc: Timmy Marie MD
[2017-05-01] MEDS: DESYREL PO SCH (20:30)
--- NOTE | 2017-05-01 20:32 | DISCHARGE SUMMARY ---
ADMISSION DATE: 04/22/2017 DISCHARGE DATE: 05/01/2017 DISCHARGE DIAGNOSES: 1. Fall. 2. Alcoholic hepatitis improved. 3. Acute alcohol withdrawal with DTs resolved. 4. Acute metabolic encephalopathy secondary to alcohol withdrawal resolved. 5. Hypertension. DIAGNOSTICS: 04/22/2017 CT of the head and C-spine: He had a small scalp contusion at the superior right scalp but no intracranial injury, advanced cervical spondylosis but no acute injury to the cervical spine. 04/22/2017 right shoulder x-ray reveals postsurgical changes and mild osteoarthritis with no acute bony abnormality. MICROBIOLOGY: Urine culture revealed no growth. HOSPITAL COURSE: Mr. Mcclellan presented to the hospital after falling. He was found to be in alcohol withdrawal with metabolic encephalopathy secondary to alcohol withdrawal. He was placed in ICU on Ativan and Librium along with hydration. He does have a history of hypertension. Blood pressures have been stable. Apresoline and Coreg have been added. During hospitalization we did trend electrolytes and replete as appropriate. DISCHARGE PHYSICAL EXAMINATION: Vital Signs: Blood pressure is 106/65 with a heart rate of 81, respirations are 18, temperature is 98.1 degrees with room air saturations are 98%. Cardiovascular: Regular rate and rhythm. S1 and S2 are appreciated. Pulmonary: Breath sounds clear with no increased work of breathing noted. Gastrointestinal: Abdomen is soft, nontender, nondistended with bowel sounds in all 4 quadrants. Musculoskeletal: Good range of motion of joints. Extremities: No clubbing, cyanosis, or edema. Calves are nontender. Pulses are palpable x4. Neurologic: He has no focal changes but he does have generalized weakness. DISCHARGE MEDICATIONS: 1. Coreg 25 mg p.o. at bedtime. 2. Welchol 625 p.o. 3. Lexapro 10 mg q.a.m. 4. Hydralazine 25 mg p.o. q.8 hours. 5. Lactulose 30 mL b.i.d. 6. Prinivil 20 mg b.i.d. 7. Trazodone 150 mg at bedtime. DISCHARGE DIET: Healthy heart with Ensure with each meal and at bedtime. DISCHARGE ACTIVITY: 1. Per PT, OT and facility policy. 2. He will be discharged to [facility] in stable condition. DISCHARGE TIME: This is a greater than 30 minute discharge from 7:45 to 8:30. Dictated by LYNDSEY Sheth for Timmy Marie MD cc: LYNDSEY Sheth MD
[2017-05-02] MEDS: WELCHOL PO SCH (07:53)
[2017-05-02] MEDS: LACTULOSE PO SCH (09:37)
[2017-05-02] MEDS: LEXAPRO PO SCH (09:37)
[2017-05-02] MEDS: LEVAQUIN PO SCH (09:37)
[2017-05-02] MEDS: PRINIVIL PO SCH ×2 (09:37→20:36)
[2017-05-02] MEDS: NORCO-7.5 PO PRN (11:35)
--- NOTE | 2017-05-02 12:02 | PROGRESS NOTE ---
DATE: 05/02/2017 SUBJECTIVE: The patient notes he is feeling a little bit better. He is still weak and tired. He is able to sit in the chair, but has to have assistance to get from chair to the bed. He notes he is having lots of right upper shoulder pain, and has been told in the past that he may have a torn rotator cuff. OBJECTIVE: Vital Signs: On physical, temperature 97, pulse 94, respiratory rate 16, BP 126/75, satting 98% on room air. General: Patient is awake, alert. He is currently in no respiratory distress. Pleasant to talk with. He is awake, alert, oriented. Speech is regular. Memory is intact. Neck: Supple. CV: Regular rate. Chest: Relatively clear. No wheezing. Nonlabored. Abdomen: Soft. Extremities: Moves all extremities. Neurologic: No focal changes. Skin: Warm, dry, no rashes. ASSESSMENT: 1. Adult failure to thrive. Patient continues to get a little bit stronger, but certainly needs rehabilitation. [facility] has a bed available as soon as his insurance decides that this is appropriate. 2. High cholesterol, stable. 3. Depression, stable. 4. Chronic pain, stable. 5. Right shoulder arthritis. 6. Hypertension. 7. Chronic alcohol abuse. Patient is adamant that alcohol is not what caused his current issues and states that it was the Flexeril. Discussed with him regardless that alcohol certainly had a role in this and that he needs to avoid alcohol at all costs. cc: Timmy Marie MD
[2017-05-02] MEDS: DESYREL PO SCH (20:36)
[2017-05-03] MEDS: LACTULOSE PO SCH ×3 (00:01→21:48)
[2017-05-03] MEDS: LEXAPRO PO SCH (08:50)
[2017-05-03] MEDS: LEVAQUIN PO SCH (08:50)
[2017-05-03] MEDS: WELCHOL PO SCH (08:50)
[2017-05-03] MEDS: PRINIVIL PO SCH ×2 (08:50→21:48)
--- NOTE | 2017-05-03 10:24 | PROGRESS NOTE ---
DATE: 05/03/2017 SUBJECTIVE: The patient feels better. He still continues of having weakness. Continues to require assistance to get from the chair to the bed. OBJECTIVE: Vital Signs: Blood pressure is 117/68, with a heart rate of 96, respirations are 18, temperature is 98.7 degrees oral, with room air saturation of 100%. Cardiovascular: Regular rate and rhythm. S1 and S2 are appreciated. Pulmonary: Breath sounds are clear with no increased work of breathing noted. Gastrointestinal: Soft, nontender, nondistended with bowel sounds in all 4 quadrants. Neurologic: He is alert and oriented. ASSESSMENT: 1. Adult failure to thrive. 2. High cholesterol, stable. 3. Depression, stable. 4. Chronic pain, stable. 5. Right shoulder arthritis. 6. Hypertension. 7. Chronic alcohol abuse. PLAN: We will continue with the current regimen. Continue with physical therapy and assisting patient out of bed. DISPOSITION: We are awaiting insurance's decision in rehab. There is a bed available at [facility]. Dictated by LYNDSEY Sheth for Timmy Marie MD cc: LYNDSEY Sheth MD
[2017-05-03] MEDS: DESYREL PO SCH (21:48)
[2017-05-03] MEDS: NORCO-7.5 PO PRN (21:48)
[2017-05-04] MEDS: LACTULOSE PO SCH (08:30)
[2017-05-04] MEDS: LEVAQUIN PO SCH (08:31)
[2017-05-04] MEDS: PRINIVIL PO SCH (08:31)
[2017-05-04] MEDS: WELCHOL PO SCH (08:31)
[2017-05-04] MEDS: LEXAPRO PO SCH (08:31)
[2017-05-04 11:49] VITALS: BP 112/69
--- NOTE | 2017-05-05 12:12 | DISCHARGE SUMMARY ---
ADMISSION DATE: 04/22/2017 DISCHARGE DATE: 05/04/2017 Please see previous dictated Discharge Summary for diagnoses and Summary of Findings. ADDENDUM REPORT: The patient was awaiting insurance approval for [facility] but in the interim while waiting he improved tremendously, has been able to ambulate in the hallway independently and has a desire now to go home as his strength has improved. We feel that this is a viable solution so we will discharge him home today with the same medications except we will add a prescription for Levaquin 500 mg p.o. daily #5 with no refills, and Lexapro 10 mg 1 p.o. q.a.m. #30 with 2 refills. Please see the previous Discharge Summary for all other information. TOTAL TIME SPENT ON DISCHARGE: 35 minutes. Dictated by LYNDSEY Hatfield for Timmy Marie MD cc: LYNDSEY Hatfield MD Marlin D. Gill, MD
== END 2017-05-04 13:15 | disposition home health service (06) ==
LOC: P.ED 13:08 → P.MEDSURG 16:51 → SUATTDRO 16:51 → ICU 22:39 → P.ICU 23:12 → P.MEDSURG 04-27 10:09
PROVIDERS: ATTEND Family Medicine